=== PATIENT | male | born 1995 | race Caucasian/White ===

== ENCOUNTER 2018-11-02 09:15 | Observation (INO) | payer OTHER ==
[~2018-11-02] VITALS: Ht 190.5 cm; Wt 84.4 kg
[~2018-11-02 09:15] MED LIST: HYDACE5 PO
[2018-11-02 09:59] LABS: Source, Urine Clean Catch
[2018-11-02 10:03] LABS: BASOPHILS ABSOLUTE AUTO 0.07 K/mm3 (0.00-0.23); BASOPHILS PERCENT AUTO 1 % (0-2); EOSINOPHILS ABSOLUTE AUTO 0.19 K/mm3 (0.00-0.68); EOSINOPHILS PERCENT AUTO 3 % (0-6); Hemoglobin 16.1 g/dL (13.5-17.5); IMMATURE GRAN PERCENT AUTO 0 % (0-1); LYMPHOCYTES ABSOLUTE AUTO 1.77 K/mm3 (0.84-5.20); LYMPHOCYTES PERCENT AUTO 24 % (21-46); MONOCYTES ABSOLUTE AUTO 0.72 K/mm3 (0.16-1.47); MONOCYTES PERCENT AUTO 10 % (4-13); Mean Corpuscular HGB 31.2 pg (26.0-34.0); Mean Corpuscular HGB Conc 33.5 g/dL (31.5-36.5); Mean Corpuscular Volume 93 fL (80-100); Mean Platelet Volume 9.9 fL (9.1-12.4); NEUTROPHILS ABSOLUTE AUTO 4.52 K/mm3 (1.96-9.15); NEUTROPHILS PERCENT AUTO 62 % (41-73); Platelet Count 191 K/mm3 (150-400); RDW Coefficient Variation 12.5 % (11.7-14.2); RDW Standard Deviation 43.5 fL (35.1-46.3); Red Blood Cell Count 5.16 M/mm3 (4.30-5.90); White Blood Cell Count 7.27 K/mm3 (4.00-11.30)
[2018-11-02 10:10] LABS: Appearance, Urine Clear (Clear); Bilirubin, Urine Neg (Neg); Blood, Urine Neg (Neg); Color, Urine Yellow (P-Yellow); Glucose Qualitative, Urine Neg (Neg); Ketones, Urine Neg (Neg); Leukocyte Esterase, Urine Neg (Neg); Nitrite, Urine Neg (Neg); Protein, Urine Neg (Neg); Urobilinogen, Urine NORM (Normal)
[2018-11-02 10:24] LABS: U Amphetamine Screen Not Detected; U Barbituate Screen Not Detected; U Benzodiazapine Screen Not Detected; U Buprenorphine Screen Not Detected; U Cannabinoids Screen DETECTED; U Cocaine Screen Not Detected; U Methadone Screen Not Detected; U Methamphetamine Screen Not Detected; U Opiates Screen Not Detected; U Oxycodone Screen Not Detected; U Phencyclidine Screen Not Detected; U Propoxyphene Screen Not Detected
[2018-11-02 10:32] LABS: Alanine Aminotransfer (ALT/SGP 42 U/L (12-78); Albumin, Blood 4.4 g/dL (3.4-5.0); Albumin/Globulin Ratio 1.2 (0.8-1.8); Alk Phos 51 U/L (50-136); Anion Gap 5 mmol/L (6-16); Aspartate Aminotrans (AST/SGOT 21 U/L (12-37); Bilirubin, Total 0.6 mg/dL (0.1-1.0); Blood Urea Nitrogen 10 mg/dL (8-24); Bun/Creatinine Ratio 13.5 (12.0-20.0); CO2, Blood 28 mmol/L (21-32); Calcium, Blood 9.3 mg/dL (8.5-10.1); Chloride, Blood 106 mmol/L (98-108); Creatinine, Blood 0.74 mg/dL (0.60-1.20); Ethanol (Alcohol), Blood, Med <3 mg/dL; Globulin, Blood 3.7 g/dL (2.2-4.0); Glomerular Filtration Rate >60 (60-); Glucose, Blood 98 mg/dL (70-99); Salicylate 4.7 mg/dL (2.8-20.0); Sodium, Blood 139 mmol/L (136-145); Thyroxine (T4) 7.6 ug/dL (4.5-12.1); Total Protein, Blood 8.1 g/dL (6.4-8.2)
[2018-11-02 10:40] LABS: Acetaminophen, Random <2.0 ug/mL (10.0-30.0)
== END 2018-11-06 12:18 | disposition home or self-care (01) ==
LOC: ER 09:15 → EOR 09:16
PROVIDERS: Emergency Medicine
DX: R45.850 Homicidal ideations (principal); F23 Brief psychotic disorder; F25.0 Schizoaffective disorder, bipolar type; F17.210 Nicotine dependence, cigarettes, uncomplicated; Z88.5 Allergy status to narcotic agent; Z79.899 Other long term (current) drug therapy
CPT/HCPCS: 29125; 36415; 73130; 80053; 81003; 84436; 84443; 85025; 96372; 99285-25; G0378; G0480; J1200; J1630; J2060; Q3014

== ENCOUNTER 2018-11-12 09:41 | Emergency (ER) | payer OTHER ==
[~2018-11-12] VITALS: Ht 190.5 cm; Wt 81.7 kg
== END 2018-11-12 11:12 | disposition home or self-care (01) ==
LOC: ER 09:41
DX: S62.326A Displaced fracture of shaft of fifth metacarpal bone, right hand, initial encounter for closed fracture (principal); F17.210 Nicotine dependence, cigarettes, uncomplicated; Z88.8 Allergy status to other drugs, medicaments and biological substances; W22.8XXA Striking against or struck by other objects, initial encounter
CPT/HCPCS: 29125; 73090; 73130; 99283-25

== ENCOUNTER 2018-12-19 16:20 | Observation (INO) | payer OTHER ==
[~2018-12-19] VITALS: Ht 188 cm; Wt 85.3 kg
[2018-12-19 16:59] LABS: BASOPHILS ABSOLUTE AUTO 0.05 K/mm3 (0.00-0.23); BASOPHILS PERCENT AUTO 1 % (0-2); EOSINOPHILS PERCENT AUTO 1 % (0-6); Hematocrit 48.5 % (37.0-53.0); Hemoglobin 16.3 g/dL (13.5-17.5); IMMATURE GRAN ABSOLUTE AUTO 0.01 K/mm3 (0.00-0.10); IMMATURE GRAN PERCENT AUTO 0 % (0-1); LYMPHOCYTES ABSOLUTE AUTO 1.75 K/mm3 (0.84-5.20); LYMPHOCYTES PERCENT AUTO 23 % (21-46); MONOCYTES ABSOLUTE AUTO 0.57 K/mm3 (0.16-1.47); MONOCYTES PERCENT AUTO 8 % (4-13); Mean Corpuscular HGB 30.6 pg (26.0-34.0); Mean Corpuscular HGB Conc 33.6 g/dL (31.5-36.5); Mean Corpuscular Volume 91 fL (80-100); Mean Platelet Volume 10.1 fL (9.1-12.4); NEUTROPHILS PERCENT AUTO 67 % (41-73); Platelet Count 157 K/mm3 (150-400); RDW Coefficient Variation 12.1 % (11.7-14.2); RDW Standard Deviation 41.1 fL (35.1-46.3); Red Blood Cell Count 5.33 M/mm3 (4.30-5.90); White Blood Cell Count 7.58 K/mm3 (4.00-11.30)
[2018-12-19 17:24] LABS: Alanine Aminotransfer (ALT/SGP 21 U/L (12-78); Albumin, Blood 4.8 g/dL (3.4-5.0); Albumin/Globulin Ratio 1.4 (0.8-1.8); Alk Phos 50 U/L (50-136); Anion Gap 9 mmol/L (6-16); Aspartate Aminotrans (AST/SGOT 9 U/L (12-37); Bilirubin, Total 0.7 mg/dL (0.1-1.0); Blood Urea Nitrogen 12 mg/dL (8-24); Bun/Creatinine Ratio 13.4 (12.0-20.0); CO2, Blood 25 mmol/L (21-32); Calcium, Blood 9.4 mg/dL (8.5-10.1); Chloride, Blood 105 mmol/L (98-108); Globulin, Blood 3.4 g/dL (2.2-4.0); Glomerular Filtration Rate >60 (60-); Glucose, Blood 100 mg/dL (70-99); Potassium, Blood 3.8 mmol/L (3.5-5.5); Sodium, Blood 139 mmol/L (136-145); Total Protein, Blood 8.2 g/dL (6.4-8.2)
[2018-12-19 17:30] LABS: Acetaminophen, Random <2.0 ug/mL (10.0-30.0); Ethanol (Alcohol), Blood, Med <3 mg/dL
[2018-12-20 22:39] LABS: Source, Urine Clean Catch
[2018-12-20 22:41] LABS: Blood, Urine Neg (Neg); Glucose Qualitative, Urine Neg (Neg); Ketones, Urine 3+ (Neg); Leukocyte Esterase, Urine 1+ (Neg); Nitrite, Urine Neg (Neg); Protein, Urine 1+ (Neg); Urobilinogen, Urine 1+ (Normal)
[2018-12-20 22:53] LABS: Appearance, Urine Clear (Clear); Color, Urine Amber (P-Yellow)
[2018-12-20 22:54] LABS: Bilirubin, Urine 1+ (Neg)
[2018-12-20 22:55] LABS: Mucus Heavy (0-Heavy); Red Blood Cells, Urine 0-2 /hpf (0-2); Squamous Epithelial Cells Rare /hpf (Few)
[2018-12-20 22:56] LABS: Bacteria Few /hpf
[2018-12-20 23:04] LABS: U Amphetamine Screen Not Detected; U Barbituate Screen Not Detected; U Benzodiazapine Screen Not Detected; U Buprenorphine Screen Not Detected; U Cannabinoids Screen DETECTED; U Cocaine Screen Not Detected; U Methadone Screen Not Detected; U Methamphetamine Screen Not Detected; U Opiates Screen Not Detected; U Oxycodone Screen Not Detected; U Phencyclidine Screen Not Detected; U Propoxyphene Screen Not Detected
== END 2018-12-21 19:23 | disposition home or self-care (01) ==
LOC: ER 16:20 → EOR 16:21
PROVIDERS: Physician Assistant; ADMIT Emergency Medicine
DX: F23 Brief psychotic disorder (principal); F31.9 Bipolar disorder, unspecified; F17.210 Nicotine dependence, cigarettes, uncomplicated; Z79.899 Other long term (current) drug therapy; Z88.5 Allergy status to narcotic agent; Z88.8 Allergy status to other drugs, medicaments and biological substances
CPT/HCPCS: 36415; 80053; 81001; 84443; 85025; 87086; 99285; G0378; G0480; Q3014

== ENCOUNTER → 2019-05-06 | Outpatient (CLI) | payer OTHER | END | disposition home or self-care (01) | LOC: LAB SHORT 12:48 → LAB UCHC 12:48 | DX: L02.11 Cutaneous abscess of neck (principal) | CPT/HCPCS: 87070; 87075; 87205 ==

== ENCOUNTER → 2020-11-06 | Outpatient (CLI) | payer OTHER ==
[2020-11-06 10:44] LABS: BASOPHILS ABSOLUTE AUTO 0.07 K/mm3 (0.00-0.23); BASOPHILS PERCENT AUTO 1 % (0-2); EOSINOPHILS ABSOLUTE AUTO 0.38 K/mm3 (0.00-0.68); EOSINOPHILS PERCENT AUTO 4 % (0-6); Hematocrit 49.3 % (37.0-53.0); Hemoglobin 15.9 g/dL (13.5-17.5); IMMATURE GRAN ABSOLUTE AUTO 0.02 K/mm3 (0.00-0.10); IMMATURE GRAN PERCENT AUTO 0 % (0-1); LYMPHOCYTES ABSOLUTE AUTO 1.81 K/mm3 (0.84-5.20); LYMPHOCYTES PERCENT AUTO 20 % (21-46); MONOCYTES ABSOLUTE AUTO 0.89 K/mm3 (0.16-1.47); MONOCYTES PERCENT AUTO 10 % (4-13); Mean Corpuscular HGB 29.9 pg (26.0-34.0); Mean Corpuscular HGB Conc 32.3 g/dL (31.5-36.5); Mean Corpuscular Volume 93 fL (80-100); NEUTROPHILS ABSOLUTE AUTO 5.69 K/mm3 (1.96-9.15); NEUTROPHILS PERCENT AUTO 64 % (41-73); Platelet Count 177 K/mm3 (150-400); RDW Coefficient Variation 12.6 % (11.7-14.2); Red Blood Cell Count 5.31 M/mm3 (4.30-5.90); White Blood Cell Count 8.86 K/mm3 (4.00-11.30)
[2020-11-06 11:11] LABS: Alanine Aminotransfer (ALT/SGP 39 U/L (12-78); Albumin, Blood 4.2 g/dL (3.4-5.0); Albumin/Globulin Ratio 1.3 (0.8-1.8); Alk Phos 49 U/L (50-136); Anion Gap 3 mmol/L (6-16); Aspartate Aminotrans (AST/SGOT 14 U/L (12-37); Bilirubin, Total 0.7 mg/dL (0.1-1.0); Blood Urea Nitrogen 11 mg/dL (8-24); Bun/Creatinine Ratio 12.7 (12.0-20.0); CO2, Blood 29 mmol/L (21-32); Calcium, Blood 9.1 mg/dL (8.5-10.1); Chloride, Blood 108 mmol/L (98-108); Creatinine, Blood 0.87 mg/dL (0.60-1.20); Globulin, Blood 3.3 g/dL (2.2-4.0); Glomerular Filtration Rate >60 (60-); Glucose, Blood 102 mg/dL (70-99); Potassium, Blood 4.5 mmol/L (3.5-5.5); Sodium, Blood 140 mmol/L (136-145); Total Protein, Blood 7.5 g/dL (6.4-8.2)
[2020-11-08 15:11] LABS: CHLAMYDIA TRACHOMATIS, NAA Negative (Negative)
== END | disposition home or self-care (01) ==
LOC: LAB SHORT 08:25
PROVIDERS: Family Medicine
DX: R05 Cough (principal); R06.00 Dyspnea, unspecified
CPT/HCPCS: 80053; 85025; 87086; 87491; 87591

== ENCOUNTER 2021-07-26 16:17 | Emergency (ER) | payer OTHER ==
[~2021-07-26] VITALS: Ht 188 cm; Wt 83.9 kg
== END 2021-07-26 16:59 | disposition home or self-care (01) ==
LOC: ER 16:17
DX: S61.411A Laceration without foreign body of right hand, initial encounter (principal); F17.210 Nicotine dependence, cigarettes, uncomplicated; Z23 Encounter for immunization; Z88.5 Allergy status to narcotic agent; W26.0XXA Contact with knife, initial encounter
CPT/HCPCS: 12001; 73120; 90471; 90714; 99283-25

== ENCOUNTER → 2021-09-28 | Outpatient (CLI) | payer OTHER ==
[2021-09-29 08:10] LABS: HIV SCREEN 4TH GENERATION WRFX Non Reactive (Non Reactive)
== END | disposition home or self-care (01) ==
LOC: LAB SHORT 15:55 → LAB 15:55
PROVIDERS: Family Medicine
DX: Z20.6 Contact with and (suspected) exposure to human immunodeficiency virus [HIV] (principal)
CPT/HCPCS: 87389

== ENCOUNTER 2021-11-18 16:21 | Emergency (ER) | payer OTHER ==
[~2021-11-18] VITALS: Ht 185.4 cm; Wt 86.2 kg
== END 2021-11-18 16:46 | disposition home or self-care (01) ==
LOC: ER 16:21
DX: S60.862A Insect bite (nonvenomous) of left wrist, initial encounter (principal); S60.861A Insect bite (nonvenomous) of right wrist, initial encounter; Z88.5 Allergy status to narcotic agent; Z88.6 Allergy status to analgesic agent; F17.210 Nicotine dependence, cigarettes, uncomplicated; W57.XXXA Bitten or stung by nonvenomous insect and other nonvenomous arthropods, initial encounter
CPT/HCPCS: 99281

== ENCOUNTER 2022-01-26 08:02 | Emergency (ER) | payer OTHER ==
[~2022-01-26] VITALS: Ht 188 cm; Wt 79.4 kg
[2022-01-26] MEDS ORDERED: TERBINAFINE15 GM TOP (08:29)
== END 2022-01-26 08:47 | disposition home or self-care (01) ==
LOC: ER 08:02
DX: B35.6 Tinea cruris (principal); F17.210 Nicotine dependence, cigarettes, uncomplicated
CPT/HCPCS: 99282

== ENCOUNTER → 2022-02-11 | Outpatient (CLI) | payer OTHER ==
[~2022-02-11] MED LIST changes: +TERBINAFINE15 GM TOP
[2022-02-13 03:11] LABS: CHLAMYDIA TRACHOMATIS, NAA Negative (Negative)
== END | disposition home or self-care (01) ==
LOC: LAB 14:39 → LAB SHORT 14:39
PROVIDERS: Family Medicine
DX: Z20.2 Contact with and (suspected) exposure to infections with a predominantly sexual mode of transmission (principal)
CPT/HCPCS: 87491; 87591

== ENCOUNTER 2022-09-20 21:26 | Emergency (ER) | payer OTHER ==
[~2022-09-20] VITALS: Ht 185.4 cm; Wt 84.4 kg
== END 2022-09-20 23:31 | disposition home or self-care (01) ==
LOC: ER 21:26
DX: H92.02 Otalgia, left ear (principal); F17.210 Nicotine dependence, cigarettes, uncomplicated; Z88.5 Allergy status to narcotic agent
CPT/HCPCS: 99282

== ENCOUNTER 2022-11-28 17:28 | Emergency (ER) | payer OTHER ==
[~2022-11-28] VITALS: Ht 185.4 cm; Wt 56.7 kg
== END 2022-11-28 20:38 | disposition home or self-care (01) ==
LOC: ER 17:28
DX: L98.9 Disorder of the skin and subcutaneous tissue, unspecified (principal); F17.210 Nicotine dependence, cigarettes, uncomplicated; Z79.899 Other long term (current) drug therapy; Z88.5 Allergy status to narcotic agent; Z88.8 Allergy status to other drugs, medicaments and biological substances
CPT/HCPCS: 99282

== ENCOUNTER 2023-05-05 16:41 | Emergency (ER) | payer OTHER ==
[~2023-05-05] VITALS: Ht 188 cm; Wt 81.7 kg
[2023-05-05 16:48] VITALS: BP 144/93
[2023-05-05] MEDS ORDERED: Prednisone20 MG PO (18:10)
== END 2023-05-05 18:10 | disposition home or self-care (01) ==
LOC: ER 16:41
DX: T17.298A Other foreign object in pharynx causing other injury, initial encounter (principal); Y08.89XA Assault by other specified means, initial encounter; Y92.830 Public park as the place of occurrence of the external cause; F17.210 Nicotine dependence, cigarettes, uncomplicated; Z88.5 Allergy status to narcotic agent; Z79.899 Other long term (current) drug therapy
CPT/HCPCS: 87430; 99283; J1100

== ENCOUNTER 2023-05-07 06:50 | Observation (INO) | payer OTHER ==
[~2023-05-07] VITALS: Ht 185.4 cm; Wt 83.9 kg
[~2023-05-07 06:50] MED LIST changes: +Prednisone20 MG PO
[2023-05-07 09:12] LABS: BASOPHILS ABSOLUTE AUTO 0.04 K/mm3 (0.00-0.23); BASOPHILS PERCENT AUTO 0 % (0-2); EOSINOPHILS ABSOLUTE AUTO 0.04 K/mm3 (0.00-0.68); EOSINOPHILS PERCENT AUTO 0 % (0-6); Hematocrit 39.8 % (37.0-53.0); Hemoglobin 13.8 g/dL (13.5-17.5); IMMATURE GRAN ABSOLUTE AUTO 0.03 K/mm3 (0.00-0.10); IMMATURE GRAN PERCENT AUTO 0 % (0-1); LYMPHOCYTES ABSOLUTE AUTO 0.89 K/mm3 (0.84-5.20); LYMPHOCYTES PERCENT AUTO 7 % (21-46); MONOCYTES ABSOLUTE AUTO 0.91 K/mm3 (0.16-1.47); MONOCYTES PERCENT AUTO 7 % (4-13); Mean Corpuscular HGB 30.7 pg (26.0-34.0); Mean Corpuscular HGB Conc 34.7 g/dL (31.5-36.5); Mean Corpuscular Volume 88 fL (80-100); Mean Platelet Volume 10.1 fL (9.1-12.4); NEUTROPHILS ABSOLUTE AUTO 11.14 K/mm3 (1.96-9.15); NEUTROPHILS PERCENT AUTO 85 % (41-73); Platelet Count 174 K/mm3 (150-400); RDW Coefficient Variation 11.9 % (11.7-14.2); RDW Standard Deviation 38.4 fL (35.1-46.3); White Blood Cell Count 13.05 K/mm3 (4.00-11.30)
[2023-05-07 09:34] LABS: Calcium, Blood 9.2 mg/dL (8.5-10.1); Creatinine, Blood 0.7 mg/dL (0.60-1.20); Potassium, Blood 3.7 mmol/L (3.5-5.5)
[2023-05-07 12:11] VITALS: BP 143/92
[2023-05-07 15:02] VITALS: BP 134/73
--- NOTE | 2023-05-07 15:07 | NUR ---
PT ARRIVED TO UNIT AT APROX 1215 FROM ER. PT HAS SIGNIFICANT AMT OF SWELLING TO THROAT, UVULA APPEARS TO BE SHIFTED TO THE LEFT. PT STATES THAT HE IS ABLE TO SWALLOW WITH LESS DIFFICULTY THAN PRIOR TO BEDSIDE DRAINAGE OF ABCESS BY DR SOOD. PT DENIES ANY DIFFICULTY BREATHING, ALTHOUGH DID STATE THAT PRIOR TO ARRIVAL HE WAS HAVING A HARD TIME BREATHING AND SWALLOWING. PT EDUCATED ON THE NEED TO CALL IF ANY CHANGES. WILL ADVANCE PT TO THE [facility] SOFT DIET.
--- NOTE | 2023-05-07 19:43 | NUR ---
SHIFT SUMMARY PT HAS SHOWN IMPROVEMENT T/O SHIFT. R SIDE OF THROAT SWELLING REDUCED COMPARED TO ADMIT. PT ABLE TO TO EAT MECH SOFT DIET W/O DIFFICULTY. PT REPORTS BREATHING EASIER. PLAN TO CONTINUE IV ABX AT THIS TIME
--- NOTE | 2023-05-07 20:00 | NUR ---
PT SITTING IN BED, NO DISTRESS NOTED. SATS >90% ON RA, PT DENIES SOB OR CONSTRICTED AIRWAY. PT REP AIRWAY AND THROAT PAIN "FEEL MUCH BETTER" AFTER BEDSIDE DRNG. PT REP MILD RIGHT SIDE THROAT PAIN W/SWALLOWING, MILD R NECK SWELLING NOTED, PT REP TENDERNESS W/PALP. PT DENIES SWALLOWING DIFFICULTY, IS DRINKING WATER, LUIGI SOFT DIET DINNER. PT EDUCATED TO CALL FOR ANY CHANGES OR CONCERNS
[2023-05-07 20:11] VITALS: BP 130/88
[2023-05-08 04:24] VITALS: BP 117/76
--- NOTE | 2023-05-08 06:04 | NUR ---
PT VSS T/O NIGHT. SATS >90% ON RA, NO RESP DISTRESS NOTED OR REPORTED. PT REP LESS PAIN AND SWELLING TO RIGHT SIDE OF THROAT. PT SWALLOWING LIQUIDS W/O DIFFICULTY, DID STRUGGLE SOME WHEN SWALLOWING CAPSULE (PER EMAR). PT DECLINED NEED FOR PAIN MEDS. PT AMB INDEP IN ROOM, LUIGI WELL, IS PLEASANT AND COOP W/CARE. IV ABX CONT PER EMAR.
--- NOTE | 2023-05-08 06:59 | NUR ---
PT SITTING IN BED WATCHING TV. PT DENIED PAIN/SOB, NO DISTRESS NOTED. BEDSIDE REPORT GIVEN TO LISETH SANCHEZ.
[2023-05-08 07:27] VITALS: BP 124/81
[2023-05-08] MEDS ORDERED: VISBIOME 112.51 EACH PO (10:57)
[2023-05-08] MEDS ORDERED: Acetaminophen650 M1 PO (10:57)
[2023-05-08] MEDS ORDERED: AMOCLA875 PO (10:58)
--- NOTE | 2023-05-08 12:03 | NUR ---
DISCHARGE INSTRUCTIONS REVIEWED WITH PATIENT. PT TELLS ME HE WILL BE ABLE TO BOILER HELPER HIS PRESCRIPTIONS AT [facility] POST DISCHARGE, PT TRYING TO PHONE A FRIEND TO GIVE HIM A RIDE.
--- NOTE | 2023-05-08 13:43 | NUR ---
1340 DISCHARGED AMBULATORY. PT TELLS ME HE WILL WALK TO [facility] TO PLANNING AIDE PRESCRIPTIONS . OFFERED PT TRANSPORTATION OR ASKED IF WOULD LIKE TO SPEAK TO A INSTRUMENTATION FITTER AND PATIENT DECLINES. PT STATES FEELS MUCH BETTER, DENIES PAIN. PT LUIGI SOFT DIET, AMBULATING IN ROOM. PT VOIDING CLEAR YELLOW URINE.
== END 2023-05-08 13:40 | disposition home or self-care (01) ==
LOC: ER 06:50 → SURS 06:51
PROVIDERS: Emergency Medicine; ADMIT Internal Medicine
DX: J36 Peritonsillar abscess (principal); J39.2 Other diseases of pharynx; F17.200 Nicotine dependence, unspecified, uncomplicated; F20.9 Schizophrenia, unspecified; Z88.5 Allergy status to narcotic agent; Z59.00 Homelessness unspecified
CPT/HCPCS: 42700; 70491; 80048; 85025; 96365-59; 96366; 96367-59; 96372; 96375-59; 99285-25; A9270; G0378; J0295; J0696; J1100; J1200; J1650; J7040; J7050; Q9967

== ENCOUNTER → 2023-08-28 | Outpatient (CLI) | payer OTHER ==
[~2023-08-28] MED LIST changes: +AMOCLA875 PO; +Acetaminophen650 M1 PO; +VISBIOME 112.51 EACH PO
[2023-08-30 00:08] LABS: CHLAMYDIA TRACHOMATIS, NAA Negative (Negative)
== END ==
LOC: LAB 15:27 → LAB SHORT 15:27
PROVIDERS: Family Medicine
DX: Z91.89 Other specified personal risk factors, not elsewhere classified (principal)
CPT/HCPCS: 87491; 87591

== ENCOUNTER 2025-05-26 21:59 | Emergency (ER) | payer OTHER ==
[~2025-05-26] VITALS: Ht 188 cm; Wt 83.9 kg
[2025-05-26 22:53] VITALS: BP 148/87
[2025-05-26] MEDS ORDERED: Ondansetron 4 MG SoluTab SL ONE (22:55)
[2025-05-26 23:46] LABS: Influenza A, PCR NEGATIVE (NEGATIVE); Influenza B, PCR NEGATIVE (NEGATIVE); Resp Syncytial Virus, PCR NEGATIVE (NEGATIVE); SARS-Cov-2 (COVID-19) PCR, MMC NEGATIVE (NEGATIVE)
[2025-05-26] MEDS ORDERED: ONDA4ODT MM (23:57)
== END 2025-05-27 | disposition home or self-care (01) ==
LOC: ER 21:59
PROVIDERS: Physician Assistant
DX: J06.9 Acute upper respiratory infection, unspecified (principal); Z88.5 Allergy status to narcotic agent; Z79.2 Long term (current) use of antibiotics; F17.200 Nicotine dependence, unspecified, uncomplicated
CPT/HCPCS: 87637; 99283; A9270